=== PATIENT | male | born 1945 | race American Indian/Alaskan Native ===

== ENCOUNTER 2016-07-10 13:28 | Outpatient (CLI) | payer MEDICARE ==
[2016-07-10 13:58] LABS: Hematocrit 45.7 % (35.5-45.6); Hemoglobin 15.6 gm/dl (11.8-15.2); Mean Corpuscular HGB Conc 34 % (32-34); Mean Corpuscular Hemoglobin 31 pg (28-32); Mean Corpuscular Volume 91 fl (84-94); Platelet Count 174 K/mm3 (140-440); Red Blood Count 5.01 M/mm3 (3.65-5.03); Red Cell Distribution Width 13.5 % (13.2-15.2); White Blood Count 7.1 K/mm3 (4.5-11.0)
[2016-07-10 14:27] LABS: Alanine Aminotransferase 44 units/L (7-56); Albumin 4.2 g/dL (3.9-5); Albumin/Globulin Ratio 1.8 %; Alkaline Phosphatase 97 units/L (35-129); Anion Gap 19 mmol/L; BUN/Creatinine Ratio 13.33; Blood Urea Nitrogen 12 mg/dL (9-20); Calcium 8.9 mg/dL (8.4-10.2); Carbon Dioxide 24 mmol/L (22-30); Chloride 105.9 mmol/L (98-107); Creatine Kinase 125 units/L (55-170); Glucose 94 mg/dL (75-100); Potassium 4.4 mmol/L (3.6-5.0); Sodium 144 mmol/L (137-145); Total Protein 6.6 g/dL (6.3-8.2)
== END 2016-07-10 13:29 | disposition home or self-care (01) ==
LOC: LAB 13:28
PROVIDERS: ATTEND Specialist
DX: G95.9 Disease of spinal cord, unspecified (principal)
CPT/HCPCS: 36415; 80053; 82085; 82550; 82607; 83036; 83921; 84443; 85027; 86334; 86592